=== PATIENT | female | born 1950 | race Caucasian/White ===

== ENCOUNTER 2023-10-19 10:35 | Observation (INO) | payer MEDICARE, MEDICAID, SELFPAY ==
[2023-10-19] VITALS (11 sets, daily range): BP systolic 110–139; BP diastolic 31–88; PULSE 92–108; RESP 15–20; TEMP 36.5–36.9; O2SAT 95–100
--- NOTE | ~2023-10-19 | US_ITS ---
EXAMINATION: US venous doppler [facility] DATE: 10/22/2023 08:55 INDICATION: Lower limb edema. TECHNIQUE: Grayscale ultrasound images without and with compression and Doppler ultrasound images of the bilateral lower extremity veins were obtained. COMPARISON: None. FINDINGS: The visualized portions of right common femoral vein, profunda (deep) femoral vein, femoral vein, and greater saphenous vein outflow are patent. There is thrombus in the right popliteal, posterior tibia l, and peroneal veins. The visualized portions of left common femoral vein, profunda femoral vein, femoral vein, popliteal v ein, peroneal veins, posterior tibial veins, and greater saphenous vein outflow are patent. IMPRESSION: 1. Deep vein thrombosis involving the right popliteal, posterior tibial, and peroneal veins. I boothe d this result to Codi Hughes. Reviewed, dictated and finalized at location A. LE APPLICATIONS DEVELOPER IMPRESSION: 1. Deep vein thrombosis involving the right popliteal, posterior tibial, and p eroneal veins. I called this result to Codi Hughes.
--- NOTE | ~2023-10-19 | XR_ITS ---
EXAMINATION: XR chest 2V Exam Date/Time: 10/19/2023 14:30 CONTROLLED AREA CHECKER HISTORY: BLE edema, 4+ pitting Comparison: None. RESULT: Lines, tubes, and devices: None. Lungs and pleura: Senescent change. Left hemidiaphragm elevation. Minimal bibasilar scar/atelectasis . Cardiomediastinal silhouette: Stable. Other: No acute osseous or upper abdominal finding. IMPRESSION: No acute cardiopulmonary process. Reviewed, dictated and finalized at location K. ROLLED AREA CHECKER
--- NOTE | ~2023-10-19 | MR_ITS ---
EXAMINATION: MR brain/brain stem wo/w con DATE: 10/22/2023 07:59 INDICATION: Bilateral lower extremity weakness. TECHNIQUE: Magnetic resonance imaging (MRI) of the brain and brainstem was performed without and with 13 mL MultiHance intravenous contrast. COMPARISON: Head CT 10/19/2023 FINDINGS: There are scattered areas of nonspecific increased T2-weighted signal intensity in the cere bral white matter, which is within normal limits for the patient's age. There is no intracranial hemo rrhage, acute infarction, or abnormal intracranial mass lesion. The ventricles are normal in size. Th e paranasal sinuses are clear. The orbits are normal. The mastoid air cells are normal. IMPRESSION: 1. Normal aging brain. Reviewed, dictated and finalized at location A. LEAD DEVELOPER IMPRESSION: 1. Normal aging brain.
--- NOTE | ~2023-10-19 | MR_ITS ---
EXAMINATION: MR cervical spine wo con DATE: 10/22/2023 16:23 INDICATION: Bilateral lower extremity weakness. TECHNIQUE: Magnetic resonance imaging (MRI) of the cervical spine was performed without intravenous c ontrast. COMPARISON: None FINDINGS: Bone alignment is normal. Vertebral body heights are normal. There is severely decreased di sc height at C3-C4, C5-C6, and C6-C7. The spinal cord signal intensity is normal. The following disc levels are specifically discussed: C2-C3: The disc does not extend beyond the endplate margin. There is no uncovertebral joint hypertrop hy. There is ankylosis of left facet joint with mild hypertrophy. There is mild left neural foraminal stenosis. There is no central canal stenosis. C3-C4: The disc is bulging. There is severe bilateral uncovertebral joint osteoarthritis. There is se harmony bilateral facet joint osteoarthritis. There is mild bilateral neural foraminal stenosis. There i s mild central canal stenosis. C4-C5: The disc does not extend beyond the endplate margin. There is moderate left uncovertebral join t osteoarthritis. There is moderate right and severe left facet joint osteoarthritis. There is modera te left neural foraminal stenosis. There is no central canal stenosis. C5-C6: The disc is bulging. There is moderate right and severe left uncovertebral joint osteoarthriti s. There is mild right and moderate left facet joint osteoarthritis. There is mild left neural forami nal stenosis. There is mild central canal stenosis. C6-C7: The disc is bulging. There is severe bilateral uncovertebral joint osteoarthritis. There is mo derate bilateral facet joint osteoarthritis. There is mild bilateral neural foraminal stenosis. There is mild central canal stenosis. C7-T1: The disc does not extend beyond the endplate margin. There is no uncovertebral joint osteoarth ritis. There is severe bilateral facet joint osteoarthritis. There is mild bilateral neural foraminal stenosis. There is no central canal stenosis. IMPRESSION: 1. Severe cervical spondylosis. Reviewed, dictated and finalized at location A. TER CHARGER
--- NOTE | ~2023-10-19 | MR_ITS ---
EXAMINATION: MR lumbar spine wo con DATE: 10/22/2023 16:23 INDICATION: Weakness TECHNIQUE: Magnetic resonance imaging (MRI) of the lumbar spine was performed without intravenous con trast. Sequences included sagittal T2-weighted FSE, sagittal T2-weighted FS FSE, sagittal T1-weighted FSE, and axial T2-weighted FSE. COMPARISON: None FINDINGS: 35 degrees thoracolumbar levoscoliosis. Vertebral body heights are normal. L5 is sacralized. T1 and T 2 hyperintense hemangioma at T12. Moderate right-sided disc height loss with associated fibrofatty de generative endplate changes at L1-L2 and L2-L3. Mild disc height loss at L3-L4 and L4-L5 and at the r ight side of L1-L2. The conus medullaris terminates at L1. There is normal signal in the caudal spina l cord. Paravertebral soft tissues are unremarkable. The following disc levels are specifically discu ssed: T12-L1: The disc does not extend beyond the endplate margin. There is mild bilateral facet joint oste oarthritis. There is no neural foraminal stenosis. There is no central canal stenosis. L1-L2: Disc is bulging. There is mild left and moderate right facet joint osteoarthritis. There is mi ld left and moderate right neural foraminal stenosis. There is mild central canal stenosis. L2-L3: Disc is bulging. There is mild left and moderate right facet joint osteoarthritis. There is mi ld bilateral neural foraminal stenosis. There is mild central canal stenosis. L3-L4: Disc is bulging with annular fissure. There is hypertrophy of the ligamentum flavum. There is severe bilateral facet joint osteoarthritis. There is mild bilateral neural foraminal stenosis. Ther e is mild central canal stenosis. L4-L5: Disc is mildly bulging with annular fissure. There is hypertrophy of the ligamentum flavum. Th ere is moderate right and severe left facet joint osteoarthritis. There is mild bilateral neural fora ben stenosis. There is mild central canal stenosis. L5-S1: The disc does not extend beyond the endplate margin. There is mild bilateral facet joint osteo arthritis. There is no neural foraminal stenosis. There is no central canal stenosis. IMPRESSION: 1. 35 degrees thoracolumbar levoscoliosis with moderate spondylosis. Reviewed, dictated and finalized at location A. ATIONS ANALYST
--- NOTE | ~2023-10-19 | XR_ITS ---
EXAMINATION: XR lumbar puncture diagnostic DATE: 10/23/2023 13:41 INDICATION: Lower extremity loss of function. TECHNIQUE: The procedure including the risks, benefits, and alternatives was discussed with the patie nt. Risks discussed included spinal headache, bleeding, and infection. The patient understood the ris ks and agreed to proceed. A timeout was performed to verify the patient's name, date of , and procedure to be performed. The skin overlying the L3-L4 level was prepped and draped in usual steri le fashion. Subcutaneous 1% lidocaine was used for local anesthesia. A 20 gauge spinal needle was a dvanced under fluoroscopic guidance. The needle was removed and the entry site was cleaned and dresse d. There were no immediate complications. Fluoroscopy exposure time was 0.1 minutes. The total numbe r of images was 1. FINDINGS: Real-time fluoroscopy demonstrates the needle at the L3-L4 level. The opening pressure was 6 cm water (Normal range is variably defined as 6-20 cm water and up to 25 cm water in obese patients . Pressure >25 cm water is one of the modified Dandy criteria for idiopathic intracranial hypertensio n). 17 mL of clear, colorless fluid was collected in 4 tubes. IMPRESSION: 1. Successful fluoro-guided lumbar puncture. Reviewed, dictated and finalized at location A. H SHEARER
--- NOTE | ~2023-10-19 | US_ITS ---
EXAMINATION: US venous doppler [facility] DATE: 10/22/2023 08:55 INDICATION: Upper limb edema. TECHNIQUE: Grayscale ultrasound images without and with compression and Doppler ultrasound images of the bilateral upper extremity veins were obtained. COMPARISON: None. FINDINGS: The visualized portions of the right internal jugular vein, subclavian vein, axillary vein, brachial veins, basilic vein, cephalic vein, radial vein, and ulnar vein are patent. The visualized portions of the left internal jugular vein, subclavian vein, axillary vein, brachial v eins, basilic vein, cephalic vein, radial vein, and ulnar vein are patent. IMPRESSION: 1. No deep venous thrombosis. Reviewed, dictated and finalized at location A. ITY OPERATOR
--- NOTE | ~2023-10-19 | MR_ITS ---
EXAMINATION: MR thoracic spine wo con DATE: 10/22/2023 16:23 INDICATION: Bilateral lower extremity weakness. TECHNIQUE: Magnetic resonance imaging (MRI) of the thoracic spine was performed without intravenous c ontrast. COMPARISON: None FINDINGS: There is 16 degrees levoscoliosis of upper thoracic spine and 28 degrees dextroscoliosis of lower thoracic spine. Vertebral body heights are normal. There is mildly decreased disc height at T3 -T4 and T4-T5, moderately decreased disc height from T5-T6 to T7-T8, and mildly decreased disc height at T8-T9. The discs do not extend beyond the endplate margins. There is multilevel facet joint osteo arthritis. No neural foraminal stenosis or central canal stenosis. The spinal cord signal intensity i s normal. The conus medullaris is at L1. There are small pleural effusions. IMPRESSION: 1. Scoliosis. 2. Moderate mid thoracic spondylosis. 3. Small pleural effusions. Reviewed, dictated and finalized at location A. ER DIRECTOR LEAD TEACHER
--- NOTE | ~2023-10-19 | CT_ITS ---
EXAMINATION: CT abdomen pelvis wo con DATE: 10/22/2023 16:33 INDICATION: Abdominal distention. Anasarca. TECHNIQUE: Computed tomography (CT) of the abdomen and pelvis was performed without intravenous contr ast. Automated exposure control and iterative reconstruction technique were employed. The dose-length product was 365.04 mGy-cm. COMPARISON: None. FINDINGS: The visualized portions of the lung bases demonstrate mild atelectasis. There are small ple ural effusions. There is mild elevation of left hemidiaphragm. The heart size is normal. No pericardi al effusion. The liver, gallbladder, pancreas, adrenal glands, and right kidney are normal. There is a 2 mm stone in left kidney. The bladder is markedly distended. There is a large volume of the stool of stool in the colon, which is distended. There are no pathologically enlarged lymph nodes. There is no free intraperitoneal fluid. There is lumbar levoscoliosis and moderate spondylosis. IMPRESSION: 1. Large volume of stool in the colon, which is distended. 2. Small pleural effusions. 3. Markedly distended bladder. Reviewed, dictated and finalized at location A. WAY ENGINEERING TEACHER
--- NOTE | ~2023-10-19 | CT_ITS ---
EXAMINATION: CT brain wo con DATE: 10/19/2023 16:23 INDICATION: distal weakness . TECHNIQUE: Computed tomography (CT) of the head was performed without intravenous contrast. The mA wa s adjusted according to patient size. Iterative reconstruction technique was employed. The dose-lengt h product was 605.33 mGy-cm. COMPARISON: None. FINDINGS: No acute intracranial hemorrhage or extra-axial fluid collection. No hydrocephalus, mass, or herniation. No acute ischemic infarct. Unremarkable dural venous sinus attenuation. No acute osseous abnormality. The aerated spaces are clear. Mild atrophy and chronic white matter change. Atherosclerotic intracranial calcification. IMPRESSION: No acute intracranial process. Reviewed, dictated and finalized at location K. PHONE CLERKS SUPERVISOR
--- NOTE | 2023-10-19 14:01 | ECG_ITS ---
Measurements Intervals [place] Rate: 102 P: 77 MI: 152 QRS: 18 QRSD: 77 T: 50 QT: 306 QTc: 399 Interpretive Statements SINUS TACHYCARDIA EARLY PRECORDIAL R/S TRANSITION CONSIDER INFERIOR INFARCT, AGE INDETERMINATE BASELINE ARTIFACT- I, II, AVR, AVL ABNORMAL ECG BORDERLINE ECG NO PREVIOUS ECG AVAILABLE FOR COMPARISON Electronically Signed On 10-19-2023 19:19:12 MULTIPLE CUT OFF SAW OPERATOR by Angelito Quinteros D.O.
[2023-10-19 14:23] LABS: Basophils Percent Auto 0.3 % (0.2-1.2); Eosinophils Absolute Auto 0.2 K/mm3 (0-0.3); Eosinophils Percent Auto 2.2 % (0-4.4); Immature Granulocyte Absolute 0.03 K/mm3 (0.00-0.031); Immature Granulocyte Percent A 0.3 % (0-0.5); Lymphocytes Absolute Auto 0.99 K/mm3 (0.9-3.2); Lymphocytes Percent Auto 9.4 % (18.3-44.2); Mean Corpuscular HGB Conc 32.4 g/dl (32-36); Mean Corpuscular Hemoglobin 30.6 pg (26-34); Mean Corpuscular Volume 94.4 fl (80-100); Mean Platelet Volume 8.8 fl (7.4-10.4); Monocytes Absolute Auto 0.9 K/mm3 (0.1-0.6); Monocytes Percent Auto 8.2 % (2.6-8.5); Neutrophils Absolute Auto 8.4 K/mm3 (1.3-6.7); Neutrophils Percent Auto 79.6 % (45.5-73.1); Platelet Count Result 322 k/mm3 (150-375); Red Blood Count 3.92 M/mm3 (4.2-5.4); Red Cell Distribution Width 14.4 % (11.5-14.5); White Blood Count 10.5 K/mm3 (4.5-10.0)
[2023-10-19 14:34] LABS: Prothrombin Time 13.4 Seconds (11.1-14.7)
[2023-10-19 14:35] LABS: Alanine Aminotransferase 50 U/L (6-35); Albumin Level 3.7 g/dL (3.5-5.1); Alkaline Phosphatase 106 U/L (38-126); Anion Gap 6 mmol/L (8-16); Aspartate Amino Transferase 54 U/L (14-36); Bilirubin,Total 0.5 mg/dL (0.2-1.3); Blood Urea Nitrogen 33 mg/dL (7-17); Calcium 9.2 mg/dL (8.4-10.2); Carbon Dioxide 27 mmol/L (22-30); Chloride 101 mmol/L (98-107); Estimated CRCL calculation 46 ml/min; Estimated Glomerular Filt Rate > 60; Glucose 106 mg/dL (65-110); Partial Thromboplastin Time 34.2 SECONDS (22.3-36.8); Potassium 4.1 mmol/L (3.4-5.0); Sodium 134 mmol/L (137-145)
[2023-10-19 14:46] LABS: NT Pro B Type Natriuretic Pept 49 pg/mL (19.9-100); Troponin I < 0.012 ng/mL (0.000-0.034)
--- NOTE | 2023-10-19 16:05 | ED.GENADULT ---
HPI - General Adult General Chief complaint: Extremity Problem,Nontraumatic <Lyudmila Ziegler MD - Last Filed: 10/23/23 21:17> Stated complaint: swollen legs, cant move legs <Lyudmila Ziegler MD - Last Filed: 10/23/23 21:17> Time Seen by Provider: 10/19/23 13:54 <Lyudmila Ziegler MD - Last Filed: 10/23/23 21:17> History of Present Illness HPI narrative: Patient is a 73-year-old female presenting with leg weakness. Patient's sisters at bedside and helps with the history. Patient states that approximately 8-9 months ago she began developing weakness in her legs. Her sister states that she started walking with a broom stick at this time to assist her. Unfortunately, about 4 months ago her legs became weaker and she started having to crawl to get around. States that she has been crawling around her house since this time. States that her legs have been swollen since this time as well. Patient's sister states that she also started to develop weakness in her hands and fingers. Patient states that she is no longer able to use a can heel finisher or button her shirts. States that her fingers feel clunky. It this week, patient was unable to get herself out of her chair and was stuck in it for 2 days in her own urine and feces. States that she has had several episodes of diarrhea. Denies any pain. No fevers. States that she has not seen a physician since her childhood. <Lyudmila Ziegler MD - Last Filed: 10/23/23 21:17> Related Data Home medications: Home Medications Medication Instructions Recorded Confirmed No Home Medications 10/22/23 10/22/23 <Lyudmila Ziegler MD - Last Filed: 10/23/23 21:17> Allergies/adverse reactions: Allergies Allergy/AdvReac Type Severity Reaction Status Date / Time No Known Allergies Allergy Verified 10/19/23 17:00 <Lyudmila Ziegler MD - Last Filed: 10/23/23 21:17> Review of Systems Review of Systems: All systems reviewed & are unremarkable except as noted in HPI and below <Lyudmila Ziegler MD - Last Filed: 10/23/23 21:17> PMFSH Past Medical History Medical History: Medical History (Updated 10/23/23 @ 21:17 by Lyudmila Ziegler MD) No history of major surgery within 1 month No significant medical problems <Lyudmila Ziegler MD - Last Filed: 10/23/23 21:17> Family History Family History: Family History (Updated 10/22/23 @ 01:42 by Estelle Oakes PA-C) Mother Benign brain tumor Father Enlarged heart Sibling Breast cancer <yLudmila Ziegler MD - Last Filed: 10/23/23 21:17> Social History Social History: Social History (Updated 10/22/23 @ 01:42 by Estelle Oakes PA-C) Social History: Surrogate medical decision maker: Dave Garza, sister. Code status: Full code. Smoking status: Never smoker Alcohol intake: never Substance use: never Do You Feel Safe in your Home?: Yes Lack of Transportation: No Lack of Food: Never True Current Housing: I Have Housing Concerned About Future Housing: No Difficulty Paying Gas/Electric Bills: No Difficulty Paying for Meds: No Currently Unemployed: No Education: High School Diploma/GED Difficulty w/ Childcare or Family Care: No Additional living arrangements comments: The patient lives in her own home in [place]. She is not and has no children. Additional occupation/education comments: Retired. Spiritual care concerns: No <Lyudmila Ziegler MD - Last Filed: 10/23/23 21:17> Exam Narrative: GENERAL: Nontoxic, no acute distress, very pleasant cooperative HEAD: Normocephalic, atraumatic. EYES: PERRLA and EOMI. ENT: Mucous membranes moist. NECK: Supple. CHEST: Clear to auscultation. No respiratory distress. HEART: Regular rate and rhythm ABDOMEN: Soft, nontender, nondistended EXTREMITIES: bilateral nonpitting edema lower extremities SKIN: Warm, dry, mild skin breakdown on buttocks NEURO: Al
--- NOTE | 2023-10-19 16:20 | PC.NURSE ---
episode watery diarrhea.
[2023-10-19] MEDS: SODIUM CHLORIDE 0.9% IV 1,000 ML 999 ML IV CONT (17:03)
--- NOTE | 2023-10-19 17:16 | PC.NURSE ---
Pt has hard what appears to be hard raised callused area with scab to right luna below the knee. And small callused scabbed area to right great toe. Abrasion to left luna. Also has what appears to be moisture associated dermatitis to zak/buttock region. Sister reports pt wore wet protective undergarment for a couple of days
--- NOTE | 2023-10-19 17:25 | PC.NURSE ---
purwick applied to zak area to allow skin free of moisture
[2023-10-19 17:29] LABS: Appearance Urine Clear (Clear); Bilirubin Urine Negative (Negative); Blood Urine Negative (Negative); Color Urine Yellow (Yellow); Glucose Urine UA Negative (Negative); Ketones Urine 1+ mg/dL (Negative); Leukocyte Esterase Ur Negative LEU/UL (Negative); Nitrate Urine Negative (Negative); Protein Urine Negative (Negative); Urobilinogen Urine 0.2 mg/dL (<2.0); pH Urine 5.5 (5.0-9.0)
[2023-10-19 18:04] LABS: Add Urine Microscopic? NO
--- NOTE | 2023-10-19 20:39 | PC.NURSE ---
Pt has c/o ankle pain. Pt reports it feels like they are blistering . Bilateral lower extremities are hot to touch, swollen, and red. Ankles elevated to relieve pressure.
[2023-10-20] VITALS (15 sets, daily range): BP systolic 99–126; BP diastolic 48–76; PULSE 81–105; RESP 15–28; TEMP 36.4–36.7; O2SAT 92–99
[2023-10-20] MEDS: LOPERAMIDE HCL 2 MG CAPSULE 4 MG PO (01:32)
[2023-10-20] MEDS: VANCOMYCIN 1,250 MG/NS 250 ML 1,250 MG/250 ML BAG 166.67 MG IVPB ×2 (01:33→19:45)
[2023-10-20] MEDS: SODIUM CHLORIDE 0.9% IV 1,000 ML 999 ML IV CONT (06:40)
[2023-10-20 07:02] LABS: Estimated CRCL calculation 60 ml/min; Estimated Glomerular Filt Rate > 60
--- NOTE | 2023-10-20 10:11 | PC.NURSE ---
spoke to [facility] and discussed POC for pt, gave update on pt status, will cont to seek bed placement and call back w/ updates
--- NOTE | 2023-10-20 11:33 | PC.NURSE ---
called dietary and ordered a lunch tray for pt at this time
--- NOTE | 2023-10-20 16:54 | PC.NURSE ---
tray ordered at [id number]
[2023-10-21] VITALS (18 sets, daily range): BP systolic 96–143; BP diastolic 50–89; PULSE 76–105; RESP 16–28; TEMP 36.7; O2SAT 92–100
--- NOTE | 2023-10-21 00:44 | PC.NURSE ---
Patient called out in pain and asked for medication. Notified EDP Dr. Roach who VRBO 1,000mg PO Tylenol.
[2023-10-21] MEDS: ACETAMINOPHEN 500 MG TABLET 1000 MG PO (00:47)
[2023-10-21 06:26] LABS: Estimated CRCL calculation 70 ml/min; Estimated Glomerular Filt Rate > 60
--- NOTE | 2023-10-21 09:04 | PC.NURSE ---
ordered coffee at 0855
--- NOTE | 2023-10-21 12:10 | PC.NURSE ---
tray ordered at 1210
--- NOTE | 2023-10-21 12:48 | PC.NURSE ---
Call from [facility] transfer center, no beds at this time
[2023-10-21] MEDS: VANCOMYCIN 1,250 MG/NS 250 ML 1,250 MG/250 ML BAG 166.6 MG IVPB (13:36)
--- NOTE | 2023-10-21 18:47 | PM.IMHP ---
H&P: HPI History of Present Illness Date/Time: 10/21/23 20:15 Chief Complaint: Swollen legs, cannot walk. Narrative: This is a 73-year-old female presented to the emergency department on 10/19/2023 at 10:35 for evaluation of swollen legs and inability to walk. The patient provides the following history. Approximately 8 or 9 months ago she began developing weakness in her legs at which time she started to use a broom stick to assist her when walking. Her weakness progressed and as of last May she has not been able to bear weight and essentially crawls around on the floor to get around the home. Her legs have been swollen since that time but stable. More recently she started to develop weakness in her fingers and hands and patient reports that she can no longer use a can ad setter or button up her shirt. Over the weekend she was unable to get herself up out of the chair and she was stock in the chair for 2 days in her own urine and feces before being discovered. She thinks her symptoms started not long after receiving the Agiliance COVID booster ?just before they took it off the market.? She denies vertigo, visual changes, facial droop, and difficulty speaking and swallowing. No recent cold or flu symptoms. No recent tick or mosquito bites. May have had some last spring when her symptoms began. Brain CT showed no acute intracranial process. Her labs were pretty unremarkable as well. Patient reports that she has not seen a physician since childhood and she has been healthy up until recently, to her knowledge. Review of Systems Review of Systems: Twelve systems were reviewed and are negative except for as per HPI. [facility] Past Medical History Medical History (Updated 10/22/23 @ 01:48 by Estelle Oakes PA-C) No history of major surgery within 1 month No significant medical problems Family History Family History (Updated 10/22/23 @ 01:42 by Estelle Oakes PA-C) Mother Benign brain tumor Father Enlarged heart Sibling Breast cancer Social History Social History (Updated 10/22/23 @ 01:42 by Estelle Oakes PA-C) Social History: Surrogate medical decision maker: Dave Gallon, . Code status: Full code. Smoking status: Never smoker Alcohol intake: never Substance use: never Do You Feel Safe in your Home?: Yes Lack of Transportation: No Lack of Food: Never True Current Housing: I Have Housing Concerned About Future Housing: No Difficulty Paying Gas/Electric Bills: No Difficulty Paying for Meds: No Currently Unemployed: No Education: High School Diploma/GED Difficulty w/ Childcare or Family Care: No Additional living arrangements comments: The patient lives in her own home in [place]. She is not and has no children. Additional occupation/education comments: Retired. Spiritual care concerns: No Meds Home Medications and Allergies Home Medications Medication Instructions Recorded Confirmed Type No Home Medications 10/22/23 10/22/23 History Allergies Allergy/AdvReac Type Severity Reaction Status Date / Time No Known Allergies Allergy Verified 10/19/23 17:00 Vital Signs Vital Signs - 24 hr 10/20/23 19:30 10/20/23 21:40 10/20/23 23:58 Temperature 97.6 F Pulse Rate 94 93 93 Respiratory Rate 28 H 16 25 H Blood Pressure 117/56 L 109/51 L 110/56 L Pulse Oximetry 96 94 92 10/21/23 01:40 10/21/23 03:38 10/21/23 05:24 Temperature Pulse Rate 105 H 77 78 Respiratory Rate 16 20 16 Blood Pressure 143/89 H 96/50 L 108/59 L Pulse Oximetry 98 93 92 10/21/23 06:53 10/21/23 07:15 10/21/23 07:30 Temperature Pulse Rate 77 83 76 Respiratory Rate 23 H 24 H 22 H Blood Pressure 112/57 L 113/57 L Pulse Oximetry 93 10/21/23 08:15 10/21/23 09:00 10/21/23 09:45 Temperature Pulse Rate 97 93 94 Respiratory Rate 22 H 20 20 Blood Pressure 119/59 L 107/52 L 115/59 L Pulse Oximetry 100 98 99 10/21/23 10:31 10/21/23 11:16 09/24
--- NOTE | 2023-10-21 22:23 | PC.NURSE ---
ON 10/21/2023 AT 2222 THIS RN SPOKE WITH NEUROLOGIST DR. BOSCH REGARDING THIS PT BEING ADMITTED HERE. DR. BOSCH MADE AWARE THAT [facility] HAS BEEN SAYING THEY HAVE A BED SINCE BEFORE 1900 TODAY, IT JUST IS NOT CLEAN. ALSO, THAT OF 2199, THE BED WAS STILL DIRTY. THIS NURSE ASKED DR. BOSCH IF HE WOULD BE OK FOR US TO ADMIT HER HERE, AND CANCEL HER BED AT [facility]. DR. BOSCH SAID THAT HE IS FINE WITH THIS AND THAT HE WOULD SEE HER IN THE MORNING.
--- NOTE | 2023-10-21 22:42 | PC.NURSE ---
Per ED CRN patient is being admitted now to room 348.
--- NOTE | 2023-10-21 22:43 | PC.NURSE ---
Per ED CN patient is being admitted still, but still waiting on a bed at the moment
--- NOTE | 2023-10-21 23:57 | ADMGEN ---
This patient, Joann Alexandra, was admitted to Medical Room 341-01. Patient/family oriented to hospital policies and general routines including ID bracelet, bed and alarms, visiting hours, pain management, procedures, bathroom and other care routines, personal items, smoking policy, room service/diet, and visiting hours. Information on how to activate the Rapid Response Team has been discussed. Patient/Family are encouraged to report perceived risks to care and to ask questions if they do not understand what they are told or what they should do.
[2023-10-22] VITALS (9 sets, daily range): BP systolic 98–123; BP diastolic 50–73; PULSE 85–95; RESP 16–20; TEMP 36.1–36.9; O2SAT 91–99; BMI 25.5
--- NOTE | 2023-10-22 01:47 | ECHO_ITS ---
Patient Info Name: Joann Alexandra Age: 73 years : 1950 Gender: Female Ht: 63 in Wt: 135 lbs BSA: 1.66 m2 HR: 94 bpm BP: 122 / 55 mmHg Heart Rhythm: Sinus Rhythm Technical Quality: Good Exam Date: 10/22/2023 8:58 AM Exam Location: Echo Lab Patient Status: Outpatient Admit Date: 10/21/2023 Staff Ordering Physician: Estelle Oakes PA-C [employer] Colerer: Gertrude Flores RDCS Attending Provider: Aydin Boston MD Referring Physician: Violette BLACKWELL; Exam Type: CA echo doppler color flow Study Info Indications - edema, weakness Complete two-dimensional, color flow and Doppler transthoracic echocardiogram is performed. Summary 1. Complete two-dimensional, color flow and Doppler transthoracic echocardiogram is performed. 2. Left ventricular chamber dimension is normal. 3. Left ventricular systolic function is normal, estimated at 60-65%. 4. There is no increased left ventricular wall thickness. 5. The left ventricular diastolic function is normal. 6. There is no aortic valve stenosis. 7. There is trace tricuspid valve regurgitation. 8. No pulmonary hypertension, estimated pulmonary arterial systolic pressure is 14 mmHg. Left Ventricle Left ventricular chamber dimension is normal. Left ventricular systolic function is normal, estimated at 60-65%. There is no increased left ventricular wall thickness. The left ventricular diastolic function is normal. Right Ventricle Right ventricular chamber dimension is normal. Right ventricular systolic function is normal. Left Atria Left atrial chamber dimension is normal. Right Atria Right atrial chamber dimension is normal. Aortic Valve The aortic valve is not well visualized. There is no aortic valve stenosis. There is no aortic valve regurgitation. Pulmonic Valve The pulmonic valve is not well visualized. Mitral Valve The mitral valve has normal leaflets. There is no mitral valve regurgitation. Tricuspid Valve The tricuspid valve leaflets are normal. There is trace tricuspid valve regurgitation. No pulmonary hypertension, estimated pulmonary arterial systolic pressure is 14 mmHg. Pericardium/Pleural The pericardium appears normal. There is no pericardial effusion. Inferior Vena Cava Normal inferior vena cava with >50% collapse upon inspiration consistent with normal right atrial pressure, 5 mmHg. Aorta The aortic root size at the sinus of Valsalva is normal. There is mild aortic atherosclerosis. Left Ventricular Outflow Tract Name Value Normal LVOT 2D LVOT Diameter 1.7 cm LVOT Doppler LVOT Peak Gradient 7 mmHg LVOT Mean Gradient 4 mmHg LVOT VTI 25 cm LVOT VTI/AV VTI Ratio 1.0 LVOT Stroke Volume 56 ml LVOT CO 4.3 l/min LVOT CI 2.6 l/min/m2 Pulmonic Valve Name Value Normal RVOT Doppler
[2023-10-22 06:19] LABS: Estimated CRCL calculation 70 ml/min; Estimated Glomerular Filt Rate > 60
[2023-10-22 06:54] LABS: Vancomycin Trough 8.6 ug/mL (10.0-20.0)
[2023-10-22 08:47] LABS: Basophils Absolute Auto 0.1 K/mm3 (0.0-0.1); Basophils Percent Auto 0.5 % (0.2-1.2); Eosinophils Absolute Auto 0.3 K/mm3 (0-0.3); Eosinophils Percent Auto 3.2 % (0-4.4); Hematocrit 32.7 % (37.0-47.0); Hemoglobin 10.3 g/dL (12.0-15.0); Immature Granulocyte Absolute 0.05 K/mm3 (0.00-0.031); Immature Granulocyte Percent A 0.5 % (0-0.5); Lymphocytes Absolute Auto 1.17 K/mm3 (0.9-3.2); Lymphocytes Percent Auto 12.2 % (18.3-44.2); Mean Corpuscular HGB Conc 31.5 g/dl (32-36); Mean Corpuscular Hemoglobin 30.3 pg (26-34); Mean Corpuscular Volume 96.2 fl (80-100); Mean Platelet Volume 9.4 fl (7.4-10.4); Monocytes Absolute Auto 0.9 K/mm3 (0.1-0.6); Monocytes Percent Auto 9.8 % (2.6-8.5); Neutrophils Percent Auto 73.8 % (45.5-73.1); Platelet Count Result 263 k/mm3 (150-375); Red Cell Distribution Width 14.3 % (11.5-14.5); White Blood Count 9.6 K/mm3 (4.5-10.0)
[2023-10-22 09:15] LABS: Alanine Aminotransferase 22 U/L (6-35); Albumin Level 2.5 g/dL (3.5-5.1); Alkaline Phosphatase 80 U/L (38-126); Anion Gap 4 mmol/L (8-16); Aspartate Amino Transferase 33 U/L (14-36); Bilirubin,Total 0.2 mg/dL (0.2-1.3); Blood Urea Nitrogen 13 mg/dL (7-17); Calcium 8.8 mg/dL (8.4-10.2); Carbon Dioxide 26 mmol/L (22-30); Chloride 105 mmol/L (98-107); Estimated CRCL calculation 70 ml/min; Estimated Glomerular Filt Rate > 60; Glucose 101 mg/dL (65-110); Sodium 135 mmol/L (137-145)
[2023-10-22] MEDS: ASPIRIN 81 MG CHEWABLE TABLET PO (09:45)
[2023-10-22] MEDS: VANCOMYCIN 1,250 MG/NS 250 ML 1,250 MG/250 ML BAG 166.67 MG IVPB (09:46)
--- NOTE | 2023-10-22 11:10 | WPDNEURCNPN ---
Assessment and Plan Assessment and plan (1) Muscle weakness: Code(s): M62.81 - Muscle weakness (generalized) Status: Acute (2) Inability to walk: Code(s): R26.2 - Difficulty in walking, not elsewhere classified Status: Acute Plan 1. 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 Consult date: 10/22/23 HPI: Joann Alexandra is a 73 year old femaleAdmitted to the hospital for the complaints of weakness of the lower extremities as per the information available on initial presentation to the emergency room she developed the weakness over the last 8 to 9 months involving her lower extremities initially she started walking with a broom stick but about 4 months ago her lower extremities became weaker and she started to crawl to get around her lower extremities have been swollen for all this time and now she complained of some weakness in her hands and fingers as well she has not able to open the hands for button her shirt this week she was unable to get herself out of chair and was stuck in it for 2 days she has had several episodes of diarrhea he was unable to clean herself. She is not taking any medications. She is not allergic to any medications. She has her sister as a her gait for medical decision, she has never smoker, never alcohol intake, and initial exam in the emergency room revealed her to be with the weakness of the upper and lower extremities but her vital signs were normal CBC was normal routine lab studies were normal UA was negative her venous Doppler study of the lower extremities is normal, brain MRI is normal with initial negative CT scan of the head in the emergency room, and also negative x-ray of the chest Review of Systems Review of Systems: All systems reviewed & are unremarkable except as noted in HPI and below [facility] Past Medical History Medical History (Updated 10/22/23 @ 01:48 by Estelle Oakes PA-C) No history of major surgery within 1 month No significant medical problems Family History Family History (Updated 10/22/23 @ 01:42 by Estelle Oakes PA-C) Mother Benign brain tumor Father Enlarged heart Sibling Breast cancer Social History Social History (Updated 10/22/23 @ 01:42 by Estelle Oakes PA-C) Social History: Surrogate medical decision maker: Dave Garza, . Code status: Full code. Smoking status: Never smoker Alcohol intake: never Substance use: never Do You Feel Safe in your Home?: Yes Lack of Transportation: No Lack of Food: Never True Current Housing: I Have Housing Concerned About Future Housing: No Difficulty Paying Gas/Electric Bills: No Difficulty Paying for Meds: No Currently Unemployed: No Education: High School Diploma/GED Difficulty w/ Childcare or Family Care: No Additional living arrangements comments: The patient lives in her own home in [place]. She is not and has no children. Additional occupation/education comments: Retired. Spiritual care concerns: No Meds Home Medications and Allergies Home Medications Medication Instructions Recorded Confirmed Type No Home Medications 10/22/23 10/22/23 History Allergies Allergy/AdvReac Type Severity Reaction Status Date / Time No Known Allergies Allergy Verified 10/19/23 17:00 Vital Signs Vital Signs - 24 hr 10/21/23 11:16 10/21/23 12:01 10/21/23 12:47 Temperature 36.7 C Pulse Rate 90 93 101 H Respiratory Rate 16 24 H 16 Blood Pressure 107/57 L 100/79 123/84 Pulse Oximetry 97 99 98 Oxygen Delivery 10/21/23 17:49 10/21/23 18:01 10/21/23 21:29 Temperature Pulse Rate 94 90 94 Respiratory Rate 27 H 28 H 16 Blood Pressure 111/60 114/60 116/60 Pulse Oximetry 94 95 95 Oxygen Delivery 10/21/23 22:16 10/21/23 23:07 10/22/23 00:00 Temperature Pulse Rate 92 104 H Respiratory Rate 24 H 24 H Blood Pressure 123/65 117/
[2023-10-22 11:39] LABS: Creatine Kinase 79 U/L (30-135)
--- NOTE | 2023-10-22 14:44 | PM.IMPN ---
Progress Note: A&P Assessment and Plan (1) Muscle weakness: Code(s): M62.81 - Muscle weakness (generalized) Status: Acute Assessment and Plan: She has become progressively more weak over the last 8 to 9 months and has been unable to walk for 4 months. She has also been exhibiting weakness in her hands and fingers. Labs were pretty unremarkable. Her brain CT did not show any acute findings. Concerns are for neuro degenerative disease, Guillain-[place], etc. MRI of the brain showing normal aging brain. MRI of cervical, thoracic and lumbar spine ordered Consider an LP B12 and folate within normal limits (2) Inability to walk: Code(s): R26.2 - Difficulty in walking, not elsewhere classified Status: Acute Assessment and Plan: Secondary to muscular weakness. Patient also experiencing decreased sensations in the bilateral lower extremities. PT and OT ordered. (3) Extremity edema: Code(s): R60.0 - Localized edema Status: Acute Assessment and Plan: B/L upper and lower extremity US ordered. CT abdomen pelvis ordered due to concerns of cirrhosis Echocardiogram ordered (4) DVT (deep venous thrombosis): Code(s): I82.409 - Acute embolism and thrombosis of unspecified deep veins of unspecified lower extremity Status: Acute Assessment and Plan: Venous ultrasound of the right lower extremity showing DVT of the right popliteal, posterior tibial and peroneal veins. Patient started on Eliquis 10/22/23. Bilateral lower extremity edema present although patient does not have any redness or tenderness to the legs. Subjective Date/time seen: 10/22/23 14:44 Interval history: Patient states that she noticed her progressive weakness it is starting and 2019 is only gotten worse since then. Her lack of walking developed in May of 2023. Patient states that she never sought out help because she did know what type of Dr. She needed to go to. She does not see a primary care provider. Her symptoms are concerning for a neuro degenerative disease. Patient has decreased sensation and mobility in her bilateral lower legs as well as decreased strength in her bilateral hands. Exam Narrative: GENERAL: Comfortable, no acute distress HENMT: moist mucous membranes EYES: EOM intact b/l NECK: no lymphadenopathy RESPIRATORY: clear to auscultation CARDIO: RRR GI: Hard, distended, bowel sounds present EXTREMITIES: Bilateral lower extremity +3 edema, +2 edema bilateral hands, no redness or tenderness, decreased strength in the hands and feet. Inability to move ankles, feet or toes on her own. Objective Data Vital Signs Vital Signs: Vital Signs - 24 hr 10/21/23 17:49 10/21/23 18:01 10/21/23 21:29 Temperature Pulse Rate 94 90 94 Respiratory Rate 27 H 28 H 16 Blood Pressure 111/60 114/60 116/60 Pulse Oximetry 94 95 95 Oxygen Delivery 10/21/23 22:16 10/21/23 23:07 10/22/23 00:00 Temperature Pulse Rate 92 104 H Respiratory Rate 24 H 24 H Blood Pressure 123/65 117/67 Pulse Oximetry 94 95 Oxygen Delivery Room Air 10/22/23 00:00 10/22/23 00:13 10/22/23 04:00 Temperature 98.4 F Pulse Rate 95 92 89 Respiratory Rate 18 Blood Pressure 123/53 L Pulse Oximetry 96 Oxygen Delivery 10/22/23 05:08 10/22/23 07:31 10/22/23 08:00 Temperature 98.5 F Pulse Rate 94 Respiratory Rate 20 Blood Pressure 122/55 L Pulse Oximetry 96 91 Oxygen Delivery Room Air Room Air 10/22/23 12:00 10/22/23 14:00 Temperature 97.9 F Pulse Rate 93 85 Respiratory Rate 16 Blood Pressure 98/73 L Pulse Oximetry 99 Oxygen Delivery Intake/Output Intake/Output: Intake & Output 10/19/23 10/20/23 10/21/23 10/22/23 23:59 23:59 23:59 23:59 Intake Total 1050 1500 250 730 Output Total 300 300 Balance 750 1500 250 430 Meds/Results Medications: Active Medications Generic Name Dose
[2023-10-22] MEDS: FUROSEMIDE INJ 40 MG/4 ML VIAL IV PUSH (17:10)
[2023-10-22] MEDS: ONDANSETRON INJ 4 MG/2 ML VIAL IV PUSH (17:10)
[2023-10-22] MEDS: APIXABAN 5 MG TABLET 10 MG PO (20:46)
[2023-10-23] VITALS (11 sets, daily range): BP systolic 97–104; BP diastolic 47–56; PULSE 81–92; RESP 18–20; TEMP 36.1–37; O2SAT 96–98
[2023-10-23 06:50] LABS: Basophils Absolute Auto 0.1 K/mm3 (0.0-0.1); Basophils Percent Auto 0.6 % (0.2-1.2); Eosinophils Absolute Auto 0.4 K/mm3 (0-0.3); Eosinophils Percent Auto 4.1 % (0-4.4); Hemoglobin 11.1 g/dL (12.0-15.0); Immature Granulocyte Absolute 0.06 K/mm3 (0.00-0.031); Immature Granulocyte Percent A 0.7 % (0-0.5); Lymphocytes Absolute Auto 0.96 K/mm3 (0.9-3.2); Lymphocytes Percent Auto 10.7 % (18.3-44.2); Mean Corpuscular HGB Conc 30.8 g/dl (32-36); Mean Corpuscular Hemoglobin 29.9 pg (26-34); Mean Platelet Volume 8.7 fl (7.4-10.4); Monocytes Absolute Auto 0.9 K/mm3 (0.1-0.6); Monocytes Percent Auto 9.7 % (2.6-8.5); Neutrophils Absolute Auto 6.7 K/mm3 (1.3-6.7); Neutrophils Percent Auto 74.2 % (45.5-73.1); Platelet Count Result 305 k/mm3 (150-375); Red Blood Count 3.71 M/mm3 (4.2-5.4); Red Cell Distribution Width 14.2 % (11.5-14.5)
[2023-10-23 07:05] LABS: Alanine Aminotransferase 24 U/L (6-35); Alkaline Phosphatase 82 U/L (38-126); Anion Gap 5 mmol/L (8-16); Aspartate Amino Transferase 31 U/L (14-36); Bilirubin,Total 0.2 mg/dL (0.2-1.3); Blood Urea Nitrogen 18 mg/dL (7-17); Calcium 9.1 mg/dL (8.4-10.2); Carbon Dioxide 31 mmol/L (22-30); Chloride 101 mmol/L (98-107); Estimated CRCL calculation 60 ml/min; Estimated Glomerular Filt Rate > 60; Glucose 105 mg/dL (65-110); Sodium 137 mmol/L (137-145)
[2023-10-23] MEDS: APIXABAN 5 MG TABLET 10 MG PO ×2 (08:35→21:08)
[2023-10-23] MEDS: FUROSEMIDE INJ 40 MG/4 ML VIAL IV PUSH ×2 (08:35→17:17)
[2023-10-23] MEDS: ASPIRIN 81 MG CHEWABLE TABLET PO (08:35)
--- NOTE | 2023-10-23 09:39 | WPDNEUROPN ---
Progress Note: A&P Assessment and Plan (1) Rapidly progressive weakness: Code(s): R53.1 - Weakness Status: Acute (2) Inability to walk: Code(s): R26.2 - Difficulty in walking, not elsewhere classified Status: Acute (3) DVT (deep venous thrombosis): Code(s): I82.409 - Acute embolism and thrombosis of unspecified deep veins of unspecified lower extremity Status: Acute Plan Ms. Alexandra is a 73 year old female with a history of no significant past medical history. She has not sought medical care since childhood. She presents due to gradual progression of weakness in the lower extremities over the past few years, now to the point that she is not able to ambulate. On exam she has distal more than proximal weakness, length dependent decrease in sensation in the lower extremities, and areflexia in the lower extremities. Concern for rapidly progressive peripheral neuropathy, at this point etiology is unclear. Considerations are CIDP, axonal variant of GBS, vs peripheral neuropathy due to unspecified cause. LP done with CSF studies so far revealing only slight elevation in protein (74). She will need EMG/NCS to be done very closely after discharge to delineate if this is a primary demyelinating vs axonal neuropathy. Depending on the results of the EMG/NCS she may be trialed on IVIG. Course has been complicated by DVT in the RLE which is likely due to immobility. If she does require IVIG she will likely need an IVC filter prior to that since the IVIG can increase risk of thrombotic events. Recommend PT/OT -- will need to be fitted for orthotics. Will check screening labs for neuropathy while admitted. Subjective Date/time seen: 10/23/23 09:39 Interval history: Ms. Alexandra is a 73 with no significant past medical history (has not seen a doctor since childhood). She has been having lower extremity weakness for the past 8-9 months. The weakness gradually worsened to the point a few months ago that she is no longer able to walk. She has been crawling. Most recently, she was unable to get out of a recliner chair (just prior to admission). She was covered in her own urine and feces because she could not get up out of her chair. Her CT head showed no acute changes. MRI brain showed normal aging brain. MRI cervical, thoracic, lumbar spine did not show any cord signal change. DVT was done due to patient's reports of lower extremity edema recently, which showed RLE DVT. She has been started on Eliquis. LP has been ordered. Cell count is 0, protein is 74. CK level is normal. Patient is not the best historian. To the hospitalist she mentioned that her symptoms started in 2019, but she told me that her symptoms started after she received the COVID vaccine in 2019. She initially had clumsiness with walking that slowly progressed to the point that she had to use a broom to walk with, and as mentioned above, now having to crawl. She also developed numbness in the feet up to the ankles gradually over the past few years as well. She denies any family history of neuropathy or any neurological conditions as far as she is aware. She denies any urinary or bowel incontinence. She denies any vision changes, dysphagia, dysarthria, chest pain, shortness of breath. She has had some diarrhea. Review of Systems Review of Systems: All systems reviewed & are unremarkable except as noted in HPI and below Exam Const: General: comfortable and no acute distress HENMT: Mouth: Yes moist mucous membranes Eyes: Pupils: Equal, round and reactive pupils present EOM: EOMs intact bilaterally Resp: Effort & Inspection: normal respiratory effort Skin: General skin exam: normal color Neuro: Other: Alert, awake, conversing appropriately, Pupils equal and reactive bilaterally, EOMI, face symmetric, facial sensation intact, tongue protrudes midline, palate midline. Strength with shoulder abduction bilaterally is 4+/5, elbow extension/flexion is 4/5, airplane captain streng
--- NOTE | 2023-10-23 09:55 | PCPTNOTE ---
attempted PT eval, per RN pt is going for lumbar puncture and will need to lay flat for 2 hours after procedure, will attempted Pt eval at a later time
--- NOTE | 2023-10-23 10:34 | PCOTNOTE ---
Pt. unable to participate at this time per RN pt is going for lumbar puncture and will need to lay flat for period of time after procedure, prior to being able to be seen for therapy evaluation.
--- NOTE | 2023-10-23 13:18 | PM.IMPN ---
Progress Note: A&P Assessment and Plan (1) Muscle weakness: Code(s): M62.81 - Muscle weakness (generalized) Status: Acute Assessment and Plan: She has become progressively more weak over the last 8 to 9 months and has been unable to walk for 4 months. She has also been exhibiting weakness in her hands and fingers. Labs were pretty unremarkable. Her brain CT did not show any acute findings. Concerns are for neuro degenerative disease, Guillain-[place], etc. MRI of the brain showing normal aging brain. MRI of cervical, thoracic and lumbar spine ordered and showing mild central stenosis LP ordered B12 and folate within normal limits (2) Inability to walk: Code(s): R26.2 - Difficulty in walking, not elsewhere classified Status: Acute Assessment and Plan: Secondary to muscular weakness. Patient also experiencing decreased sensations in the bilateral lower extremities. PT and OT ordered. (3) Extremity edema: Code(s): R60.0 - Localized edema Status: Acute Assessment and Plan: B/L upper and lower extremity US ordered. CT abdomen pelvis showing distended bladder and large volume of stool in colon. Echocardiogram with EF of 60-65% and diastolic function normal (4) DVT (deep venous thrombosis): Code(s): I82.409 - Acute embolism and thrombosis of unspecified deep veins of unspecified lower extremity Status: Acute Assessment and Plan: Venous ultrasound of the right lower extremity showing DVT of the right popliteal, posterior tibial and peroneal veins. Patient started on Eliquis 10/22/23. Bilateral lower extremity edema present although patient does not have any redness or tenderness to the legs. 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 Further testing includes an LP which is been ordered as well as nerve conduction studies which will have to be done as an outpatient. Patient has been started on anticoagulation therapy for her DVT. 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 Plan to get patient to a rehab facility where she can continue her follow-up as an outpatient. Discussed this with care coordination. Exam Narrative: GENERAL: Comfortable, no acute distress HENMT: moist mucous membranes EYES: EOM intact b/l NECK: no lymphadenopathy RESPIRATORY: clear to auscultation CARDIO: RRR GI: Hard, distended, bowel sounds present EXTREMITIES: Bilateral lower extremity +3 edema, +2 edema bilateral hands, no redness or tenderness, decreased strength in the hands and feet. Inability to move ankles, feet or toes on her own. Absent Babinski reflex. Objective Data Vital Signs Vital Signs: Vital Signs - 24 hr 10/22/23 14:00 10/22/23 20:00 10/22/23 20:00 Temperature 97.9 F Pulse Rate 85 89 Respiratory Rate 16 Blood Pressure 98/73 L Pulse Oximetry 99 Oxygen Delivery Room Air 10/23/23 00:00 10/22/23 22:00 10/23/23 04:00 Temperature 97.0 F L Pulse Rate 87 94 84 Respiratory Rate 18 Blood Pressure 100/50 L Pulse Oximetry 96 Oxygen Delivery 10/23/23 06:00 10/23/23 08:00 10/23/23 08:00 Temperature 97.0 F L Pulse Rate 81 91 Respiratory Rate 18 Blood Pressure 102/47 L Pulse Oximetry 96 Oxygen Delivery Room Air Intake/Output Intake/Output: Intake & Output 10/20/23 10/21/23 10/22/23 10/23/23 23:59 23:59 23:59 23:59 Intake Total 1500 250 850 740 Output Total 1100 1850 Balance 1500 250 -250 -1110 Meds/Results Medications: Active Medications Generic Name Dose Route Start Last Admin Trade Name Freq PRN Reason Stop Dose Admin Apixaban 10 mg 10/22/23 21:00 10/23/23 08:35 Apixaban 5 Mg Tablet PO 10 mg Q12HR [place] Administration Aspirin 81 mg 10/22/23 08:00 10/23/23 08:35 Asp
[2023-10-23 13:53] LABS: Glucose CSF 66 mg/dL (40-70); Total Protein CSF 74 mg/dL (12-60)
[2023-10-23 14:01] LABS: Appearance CSF Clear (Clear); CSF source CSF; Color CSF Colorless (Colorless)
[2023-10-23 14:02] LABS: Nucleated Cell CSF 1 /uL (0-5); Red Blood Cell CSF 0 (0-2)
[2023-10-23 14:10] LABS: Lymphocytes CSF 70 % (40-80); Neutrophils CSF 30 % (0-6)
[2023-10-23 15:45] LABS: Rapid Plasma Reagin Non-Reactive (NonReactive)
[2023-10-23 17:07] LABS: CRP 1.6 mg/dL (<1.0)
[2023-10-23] MEDS: polyethylene glycoL 3350 17 GM POWD.PACK PO (17:17)
[2023-10-23 17:35] LABS: Erythrocyte Sedimentation Rate 95 mm/hr (0-20)
[2023-10-23 18:36] LABS: HIV 1/2 Ab P24 Ag Result Negative (Negative)
[2023-10-23 18:37] LABS: Hemoglobin A1C 5.6 % (<5.7)
[2023-10-23 18:48] LABS: Hepatitis B Surface Antigen Negative (Negative)
[2023-10-23 18:52] LABS: Folic Acid 13.4 ng/mL (2.76->20)
[2023-10-23 19:05] LABS: Hepatitis C Virus Antibody Negative (Negative)
[2023-10-23 19:53] LABS: HAV RESULT Negative (Negative)
[2023-10-23 20:38] LABS: Hepatitis B Core IgM Result Negative (Negative)
[2023-10-24] VITALS (10 sets, daily range): BP systolic 100–104; BP diastolic 49–51; PULSE 71–108; RESP 16; TEMP 36.7–36.9; O2SAT 95–99
[2023-10-24] MEDS: SODIUM CHLOR 3% 15 ML NEB (RESPIRATORY THERAPY) 6 ML INHALATION (05:34)
[2023-10-24 05:57] LABS: Alanine Aminotransferase 28 U/L (6-35); Albumin Level 3.2 g/dL (3.5-5.1); Alkaline Phosphatase 89 U/L (38-126); Anion Gap 6 mmol/L (8-16); Aspartate Amino Transferase 33 U/L (14-36); Bilirubin,Total 0.3 mg/dL (0.2-1.3); Blood Urea Nitrogen 22 mg/dL (7-17); Calcium 9.1 mg/dL (8.4-10.2); Carbon Dioxide 33 mmol/L (22-30); Chloride 98 mmol/L (98-107); Estimated CRCL calculation 60 ml/min; Estimated Glomerular Filt Rate > 60; Glucose 100 mg/dL (65-110); Sodium 137 mmol/L (137-145)
[2023-10-24 06:03] LABS: Potassium 3.7 mmol/L (3.4-5.0)
[2023-10-24 08:38] LABS: Basophils Percent Auto 0.5 % (0.2-1.2); Eosinophils Absolute Auto 0.4 K/mm3 (0-0.3); Hematocrit 34.9 % (37.0-47.0); Hemoglobin 11.1 g/dL (12.0-15.0); Immature Granulocyte Absolute 0.05 K/mm3 (0.00-0.031); Immature Granulocyte Percent A 0.6 % (0-0.5); Lymphocytes Absolute Auto 1.21 K/mm3 (0.9-3.2); Lymphocytes Percent Auto 13.8 % (18.3-44.2); Mean Corpuscular HGB Conc 31.8 g/dl (32-36); Mean Corpuscular Hemoglobin 30.3 pg (26-34); Mean Corpuscular Volume 95.4 fl (80-100); Mean Platelet Volume 8.9 fl (7.4-10.4); Monocytes Absolute Auto 0.9 K/mm3 (0.1-0.6); Monocytes Percent Auto 10.4 % (2.6-8.5); Neutrophils Absolute Auto 6.1 K/mm3 (1.3-6.7); Neutrophils Percent Auto 69.7 % (45.5-73.1); Platelet Count Result 340 k/mm3 (150-375); Red Blood Count 3.66 M/mm3 (4.2-5.4); Red Cell Distribution Width 14.1 % (11.5-14.5); White Blood Count 8.8 K/mm3 (4.5-10.0)
--- NOTE | 2023-10-24 08:51 | WPDNEUROPN ---
Progress Note: A&P Assessment and Plan (1) Rapidly progressive weakness: Code(s): R53.1 - Weakness Status: Acute (2) Inability to walk: Code(s): R26.2 - Difficulty in walking, not elsewhere classified Status: Acute (3) DVT (deep venous thrombosis): Code(s): I82.409 - Acute embolism and thrombosis of unspecified deep veins of unspecified lower extremity Status: Acute Plan Ms. Alexandra is a 73 year old female with a history of no significant past medical history. She has not sought medical care since childhood. She presents due to gradual progression of weakness in the lower extremities over the past few years, now to the point that she is not able to ambulate. On exam she has distal more than proximal weakness, length dependent decrease in sensation in the lower extremities, and areflexia in the lower extremities. Concern for rapidly progressive peripheral neuropathy, at this point etiology is unclear. Considerations are CIDP, axonal variant of GBS, vs peripheral neuropathy due to unspecified cause. LP done with CSF studies so far revealing only slight elevation in protein (74). She will need EMG/NCS to be done very closely after discharge to delineate if this is a primary demyelinating vs axonal neuropathy. Depending on the results of the EMG/NCS she may be trialed on IVIG. Course has been complicated by DVT in the RLE which is likely due to immobility. If she does require IVIG she will likely need an IVC filter prior to that since the IVIG can increase risk of thrombotic events. Recommend PT/OT -- will need to be fitted for orthotics. Will check screening labs for neuropathy while admitted. Subjective Date/time seen: 10/24/23 08:51 Interval history: Ms. Alexandra is a 73 with no significant past medical history (has not seen a doctor since childhood). She has been having lower extremity weakness for the past 8-9 months. The weakness gradually worsened to the point a few months ago that she is no longer able to walk. She has been crawling. Most recently, she was unable to get out of a recliner chair (just prior to admission). She was covered in her own urine and feces because she could not get up out of her chair. Her CT head showed no acute changes. MRI brain showed normal aging brain. MRI cervical, thoracic, lumbar spine did not show any cord signal change. DVT was done due to patient's reports of lower extremity edema recently, which showed RLE DVT. She has been started on Eliquis. LP has been ordered. Cell count is 0, protein is 74. CK level is normal. Patient is not the best historian. To the hospitalist she mentioned that her symptoms started in 2019, but she told me that her symptoms started after she received the COVID vaccine in 2019. She initially had clumsiness with walking that slowly progressed to the point that she had to use a broom to walk with, and as mentioned above, now having to crawl. She also developed numbness in the feet up to the ankles gradually over the past few years as well. She denies any family history of neuropathy or any neurological conditions as far as she is aware. She denies any urinary or bowel incontinence. She denies any vision changes, dysphagia, dysarthria, chest pain, shortness of breath. She has had some diarrhea. Screening labs ordered. Most still pending, but B12, folate, TSH, A1c are within normal range. Hepatitis panel and HIV are negative. CRP is 1.6. Review of Systems Review of Systems: All systems reviewed & are unremarkable except as noted in HPI and below Exam Const: General: comfortable and no acute distress HENMT: Mouth: Yes moist mucous membranes Eyes: Pupils: Equal, round and reactive pupils present EOM: EOMs intact bilaterally Resp: Effort & Inspection: normal respiratory effort Skin: General skin exam: normal color Neuro: Other: Alert, awake, conversing appropriately, Pupils equal and reactive bilaterally, EOMI, face symmetric, facial sensation
[2023-10-24] MEDS: polyethylene glycoL 3350 17 GM POWD.PACK PO (09:34)
[2023-10-24] MEDS: FUROSEMIDE INJ 40 MG/4 ML VIAL IV PUSH (09:34)
[2023-10-24] MEDS: ASPIRIN 81 MG CHEWABLE TABLET PO (09:34)
[2023-10-24] MEDS: APIXABAN 5 MG TABLET 10 MG PO (09:34)
--- NOTE | 2023-10-24 14:41 | PM.DS ---
DS: Admitting Diagnosis Discharge Date 10/24/23 Admitting Diagnosis Bilateral upper and lower extremity weakness DS: Discharge Diagnosis Discharge Diagnosis (1) Muscle weakness: Code(s): M62.81 - Muscle weakness (generalized) Status: Acute (2) Inability to walk: Code(s): R26.2 - Difficulty in walking, not elsewhere classified Status: Acute (3) Extremity edema: Code(s): R60.0 - Localized edema Status: Acute (4) DVT (deep venous thrombosis): Code(s): I82.409 - Acute embolism and thrombosis of unspecified deep veins of unspecified lower extremity Status: Acute DS: Summary Hospital Course Hospital Course: This is a 73-year-old female with a insignificant past medical history that presented to the ED on 10/19/2023 for evaluation of swollen legs and inability to walk. According to the patient 8-9 months ago she had began developing weakness in her legs and was using a broom stick to help her walk. Her weakness progressed slowly and as of May of 2023 she was unable to bear weight and had to crawl around her home to get from 1 place to another. 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 Prior to ED arrival she was found in her living room chair for 2 days in her own urine and feces. After further discussion with the patient's she states that she started to feel herself slowing down as far back as 2018. She is a poor historian and information was hard to gain from her. She denied vertigo, visual changes, facial droop, and difficulty speaking and swallowing. No recent cold or flu symptoms. No recent tick or mosquito bites.? CT scan of her head with no acute intracranial process. MRI of the brain with no acute intracranial process. Neurology was consulted. MRI of the cervical, thoracic and lumbar spine showed some mild central canal stenosis but otherwise normal. Patient had complete loss of movement in her ankles, feet toes and very weak glove sewer in her hands. Reflexes were absent in wrist, feet and ankles as well as Babinski reflex. LP was performed which showed some mildly elevated protein at 74. Urology believes that patient could be experiencing some type of progressive peripheral neuropathy versus axonal neuropathy versus chronic inflammatory demyelinating polyneuropathy syndrome. Plan to have outpatient nerve conduction study. Patient was also found to have a right-sided DVT and was started on Eliquis for this. Due to the possibility of patient possibly needing IVIG she may end up needing a IVC filter. She should be able to get this as an outpatient. Will need further workup of her neurological symptoms prior to proceeding with this. Patient is getting fitted for AFO brace to aid with therapy. Will discharge patient to a SNF for close follow-up with Neurology as an outpatient. Long conversation with the patient about therapy and the length of time it will take for patient to recover from this if at all. Patient remains optimistic and states that she is going to work very hard to regain function of her lower extremities. Patient's labs and vital signs remained stable. She is medically clear for discharge and Recommend close follow-up with Neurology as an outpatient. Time Spent with Patient Time attestation: Total time spent providing and/or coordinating discharge services: Exam Narrative: GENERAL: Comfortable, no acute distress HENMT: moist mucous membranes EYES: EOM intact b/l NECK: no lymphadenopathy RESPIRATORY: clear to auscultation CARDIO: RRR GI: Hard, distended, bowel sounds present EXTREMITIES: Bilateral lower extremity +3 edema, +2 edema bilateral hands, no redness or tenderness, decreased strength in the hands and feet. Inability to move ankles, feet or toes on her own. Absent Babinski reflex. DS: Data Data Completed and Pending Completed studies during hospitalization: Pending at discharge 10/23/23 08:44 Cytology [PTH] Koki
[2023-10-25 12:07] LABS: CMV DNA Quant PCR IU/mL Not Detected; Cytomegalovirus DNA Quant PCR Not Detected log IU/mL; Cytomegalovirus DNA Source Serum
[2023-10-25 15:22] LABS: Epstein Barr Virus DNA PCR Not Detected (Not Detected); Source Epstein Barr Virus Serum
[2023-10-25 23:51] LABS: Source Serum
[2023-10-26 04:38] LABS: Herpes Simplex Type 1 DNA PCR Not Detected (Not Detected); Herpes Simplex Type 2 DNA PCR Not Detected (Not Detected)
[2023-10-26 06:03] LABS: Red Blood Cell Folate 691 ng/mL RBC (>280)
[2023-10-26 11:58] LABS: Cryptococcus Antigen Not Detected (Not Detected); Cryptococcus Specimen Source Serum
[2023-10-26 14:19] LABS: VDRL Quantitative CSF Nonreactive (Nonreactive)
[2023-10-26 14:33] LABS: Zinc 58 mcg/dL (60-130)
[2023-10-27 02:32] LABS: Angiotensin Converting Enzyme 39 U/L (9-67)
[2023-10-27 08:53] LABS: HIV 1 2 Ag Ab 4th Gen w Rflxs Nonreactive (Nonreactive)
[2023-10-27 14:59] LABS: Lyme Disease Ab (IgM), Blot Negative (Negative); Lyme Disease Ab(IgG), Blot Negative (Negative)
[2023-10-28 02:39] LABS: Aldolase 4.4 U/L (<=8.1)
[2023-10-28 03:57] LABS: SS-A 2.1; SS-B <1.0
[2023-10-31 19:25] LABS: Albumin, CSF 35.2 mg/dL (8.0-42.0); Albumin, Serum 2.9 g/dL (3.6-5.1); IgG, CSF 6.6 mg/dL (0.8-7.7); Immunoglobulin G, Serum 1090 mg/dL (600-1540); Myelin Basic Protein, CSF 3.1 mcg/L (<=4.0); Oligoclonal Bands (IgG), CSF Absent (Absent)
== END 2023-10-24 19:27 ==
LOC: ANHED 10-21 19:02 → ANH3MEDSUR 10-21 22:47 → ANH3MED 10-21 22:57
PROVIDERS: Internal Medicine Critical Care Medicine; Psychiatry & Neurology Neurology; Student in an Organized Health Care Education/Training Program; Admitting Provider Family Medicine; Emergency Provider Emergency Medicine; Visit Provider Family Medicine
DX: I82.431 Acute embolism and thrombosis of right popliteal vein (principal); I82.441 Acute embolism and thrombosis of right tibial vein; I82.451 Acute embolism and thrombosis of right peroneal vein; M62.81 Muscle weakness (generalized); R60.0 Localized edema; R26.2 Difficulty in walking, not elsewhere classified; Z11.4 Encounter for screening for human immunodeficiency virus [HIV]; Z11.3 Encounter for screening for infections with a predominantly sexual mode of transmission
CPT/HCPCS: 36415; 62328; 70450; 70553; 71046; 72141; 72146; 72148; 74176; 80053; 80074; 80202; 81003; 82040; 82042; 82085; 82164; 82525; 82550; 82565; 82607; 82746; 82747; 82784; 82945; 83036; 83605; 83873; 83880; 83916; 84157; 84207; 84425; 84443; 84484; 84630; 85025; 85610; 85652; 85730; 86038; 86039; 86140; 86235; 86334; 86335; 86403; 86592; 86617; 86703; 87015; 87070; 87102; 87116; 87206; 87255; 87389; 87497; 87529; 87798; 88108; 89051; 93005; 93306; 93970; 94640; 96361; 96365; 96366; 96367; 96375; 96376; 97162; 97166; 99285; A9270; A9577; G0378; G0432; J0696; J1940; J2405; J3370; J7030

== ENCOUNTER 2023-11-10 06:57 | Outpatient (CLI) | payer MEDICARE, MEDICAID, SELFPAY ==
--- NOTE | 2023-11-10 10:00 | NEURO_ITS ---
Clinical note: The patient is [age] years old which developed weakness in her both upper and lower limbs over the course of last 9 months. Please refer to neurology consultation report for details. On a brief bedside examination today patient was noted to have severe weakness of dorsiflexion and plantar flexion of both ankles. In addition atrophy and weakness of both hands bowel grade 3-4 or 5 were noted. Moderate swelling of both ankles was also noted. Description: 1. Right median and ulnar and right superficial peroneal and sural sensory responses were absent. Right and left radial sensory distal latencies are mildly prolonged and amplitudes were severely decreased. Left wrist and right median ulnar orthodromic palmar sensory responses were absent 2. Right median motor was absent. Left median motor with essentially absent. Right peroneal and tibial motor were absent. Left and right ulnar motor distal latency was significantly prolonged and amplitude is markedly decreased and conduction velocities were also severely decreased. 3. EMG and nerve conduction study of the right upper and both lower limbs show significant denervation changes and marked loss of motor unit recruitment which was clearly more marked distally. No significant changes were seen in the right tensor fascial teressa. Right rectus femoris shows moderate chronic denervation changes however recruitment was normal. Severe loss of motor unit recruitment was seen in distal muscles. Paraspinal muscles could not be examined since the patient is on anticoagulation with Eliquis. 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 Given the history possibility of the motor variant of Guillain- [place] syndrome should be considered. In view of the limited available data on motor conduction studies a differentiation from chronic inflammatory demyelinating polyneuropathy is difficult. Continued clinical correlation with CSF findings may be helpful. Maria Eugenia Peterson MD, FAAN, FAANEM, FAASM Neurologist Diplomate, [place] [employer] and clinical neurophysiology Diplomat [place] [employer] Nerve Conduction Studies Anti Sensory Summary Table Stim Site NR Peak (ms) P-T Amp (?V) Site1 Site2 Delta-P (ms) Dist (cm) Jesse (m/s) Right Median Anti Sensory (2-3nd Digit) Wrist NR Wrist 2-3nd Digit 14.0 Wrist 2-3nd Digit 0.0 Left Radial Anti Sensory (Base 1st Digit) Wrist 2.4 6.7 Wrist Base 1st Digit 2.4 8.0 33 Right Radial Anti Sensory (Base 1st Digit) Wrist 2.4 4.6 Wrist Base 1st Digit 2.4 8.0 33 Right Sup Peroneal Anti Sensory (Ant Lat Mall) Calf NR Calf Ant Lat Mall 16.0 Right Sural Anti Sensory (Lat Mall) Calf NR Calf Lat Mall 12.0 Right Ulnar Anti Sensory (5th Digit) Wrist NR Wrist 5th Digit 14.0 Motor Summary Table Stim Site NR Onset (ms) O-P Amp (mV) Site1 Site2 Delta-0 (ms) Dist (cm) Jesse (m/s) Left Median Motor (Abd Poll Brev) Wrist 20.0 1.2 Elbow Wrist 15.8 19.0 12 Elbow 35.8 0.3 Wrist#2 Elbow 27.2 19.0 7 Wrist#2 8.6 0.3 Right Median Motor (Abd Poll Brev) Wrist NR Elbow Wrist 20.0 Elbow NR Palm Wrist 7.0 Palm NR Right Peroneal Motor (Ext Dig Brev) Ankle NR Ankle Ext Dig Brev 6.0 Popit NR B Fib Ankle 29.0 B Fib NR Popit B Fib 8.0 Right Tibial Motor (Abd Wright Brev) Ankle NR Knee Ankle 9.0 Knee NR Left Ulnar Motor (Abd Dig Minimi) Wrist 10.9 0.3 Basia
== END 2023-11-10 06:58 | disposition home or self-care (01) ==
LOC: ANHNEURO 06:58
PROVIDERS: Visit Provider Psychiatry & Neurology Neurology
DX: R53.1 Weakness (principal)
CPT/HCPCS: 95886; 95913